=== PATIENT | male | born 1985 | race Caucasian/White ===

== ENCOUNTER → 2022-04-16 | Outpatient (CLI) | payer OTHER, SELFPAY | END | disposition home or self-care (01) | LOC: RAD 17:47 | PROVIDERS: PCP Nurse Practitioner Family; Referring Provider Nurse Practitioner Family; Visit Provider Nurse Practitioner Family | DX: M79.672 Pain in left foot (principal) ==

== ENCOUNTER 2022-08-29 07:56 | Day surgery (SDC) | payer MEDICARE, MEDICAID, SELFPAY ==
[2022-08-29] VITALS (7 sets, daily range): BP systolic 103–124; BP diastolic 63–79; PULSE 65–90; RESP 16–18; TEMP 36.3–36.7; O2SAT 95–99; BMI 41.4
[2022-08-29] MEDS: Lactated Ringers 1,000 ML 15 ML IV (08:23)
--- NOTE | 2022-08-29 08:42 | PCM.HP.BLA ---
History and Physical Date of Admission: 08/29/22 Intake Vital Signs ? 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 Smoking Status:? Former smoker alcohol intake:? never substance use type:? does not use HPI HPI HPI: Patient is a 37-year-old male here with epigastric pain.? He was started on a PPI and was doing well.? When coming off PPI he started have gastritis symptoms again.? He is back to normal while on a PPI again. ROS General General: No weight change, appetite, fatigue, colon cancer, breast cancer or weakness HEENT HEENT: Yes eye injury; No difficulty swallowing, eye surgery, swollen glands or hoarseness Endo Endocrine: No thyroid disease, diabetes mellitus, thyroid cancer, Hair loss, heat intolerance or cold intolerance Skin Skin: No rash or changing moles Musc Musculoskeletal: No back problems, arthritis, rheumatoid arthritis, gout or joint pain Cardio Cardiovascular: No murmur, pacemaker, heart disease, atrial fibrillation, high blood pressure, heart attack, heart stent, palpitations, shortness of breat with exertion or chest pain Psych Psychiatric: Yes depression and anxiety; No hearing voices Resp Respiratory: No shortness of breath, No sleep apnea, No cough, No COPD, No asthma, No emphysema and No wheezing Gastro Gastrointestinal: Yes abdominal pain, No nausea or vomiting, No diarrhea, No constipation, No blood in stool, No acid reflux, No hemorrhoids, No ulcers, No gallbladder problem and No black,tarry stools David Hematologic: No blood thinners, No blood disorders, No bleeding, No anemia and No blood clots Neuro Neurologic: No system reviewed and no additional complaints, except as documented, No as per HPI, No abnormal gait, No abnormal hearing, No abnormal movements, No abnormal speech, No behavioral changes, No burning sensations, No confusion, No convulsions, No disequilibrium, No dizziness, No localized weakness, No frequent falls, No headache(s), No lack of coordination, No loss of vision, No memory loss, No numbness, No other visual disturbances, No radicular pain, No restless legs, No sensory deficit, No syncope, No tingling, No tremor(s), No weakness and No other Exam Const General: cooperative Orientation: alert and oriented x3 HENMT Head: normal to inspection Neck Neck: normal visual inspection and full ROM Chest Chest palpation & inspection: normal inspection of the chest Resp Effort & Inspection: normal respiratory effort Auscultation: clear to auscultation bilaterally Cardio Rate: regular rate Rhythm: regular rhythm GI Inspection: non-distended Palpation: soft and nontender Skin General: no rashes or lesions noted Neuro General: patient alert and patient oriented x3 Extrem General: full ROM Psych Appearance: grossly normal Mental Status: mental status grossly normal Assessment and Plan Assessment and Plan (1) Epigastric pain: ?Status:?Acute ?Plan: The patient says his epigastric pain comes back as soon as he stops his PPI.? I will perform an EGD to take a look for ulceration or gastritis and I will do biopsies to check for H. pylori. I explained endoscopy in detail to the patient.? I explained the risks including but not limited to stroke or heart attack with anesthesia, perforation of the GI tract, bleeding, infection.? I explained that any of these could necessitate further emergency surgery.? The patient understands and all questions were answered sufficiently.? The patient wishes to proceed with procedure. Armen Gloria MD Pager: [facility] [address] [place] [address] [address] [place] [address] Office: I have examined the patient and the H&P has been reviewed. There are no clinical changes since date of exam.
--- NOTE | 2022-08-29 09:00 | IMM_PTH ---
PATIENT: WILBER VO LOC: EN U#:[id number] AGE/SX: 37/M ROOM: RE08/29/[address]: Dr. Armen Gloria MD : 1985 BED: DIS: 08/29/2022 SPEC #: [id number] RECD: 09/01/22 08:14 STATUS: BRANDI MARIA ALEJANDRA #: [id number] BONNIE: 08/29/22 09:[address]: Armen Gloria DEPT: IMMUNOHISTOCHEMISTRY RECD BY: Briana Liu ENTERED: 09/01/22 08:15 SP TYPE: IMMUNO OTHR DR: Marcia Rivera, ELECTRIC CELL TENDER-[facility] Tissues: Stomach, NOS Procedures: H Pylori (initial) PHYSICIAN & INSTITUTION [place] [address] SPECIMEN INFORMATION: Tissue Source: Antrum Clinical Info: Epigastric pain Specimen Number: [id number] CPT code: 63855 METHODOLOGY: Deparaffinized sections of prefer/formalin-fixed tissue or PAP/DQ stained slides are incubated with monoclonal/polyclonal antibodies/oligonucleotide probes. Localization is made via biotin free immunoperoxidase method. Appropriate controls are performed and reacted as expected. Results on target cell population are indicated in the following table: RESULTS: ANTIBODY / CLONE RESULT H Pylori (polyclonal) negative These tests were developed and their performance characteristics determined by [facility]. They may not have been cleared or approved by the U.S. Food and Drug Administration. The FDA has determined that such clearance or approval is not necessary. The above immunohistochemical/dualISH markers are ordered and reviewed by the Pathologist. INTERPRETATION: Antrum, biopsy: Negative for Helicobacter pylori organisms. AM:rosendo 09/02/2022
--- NOTE | 2022-08-29 09:00 | EGD_PTH ---
PATIENT: WILBER VO LOC: EN U#:[id number] AGE/SX: 37/M ROOM: RE08/29/[address]: Dr. Armen Gloria MD : 1985 BED: DIS: 08/29/2022 SPEC #: [id number] RECD: 08/29/22 12:32 STATUS: BRANDI MARIA ALEJANDRA #: [id number] BONNIE: 08/29/22 09:[address]: Armen Gloria DEPT: SURGICAL PATHOLOGY RECD BY: Veronica Luna ENTERED: 09/01/22 07:21 SP TYPE: EGD BIOPSY OT DR: LUIZ [facility] Tissues: Gastric mucous membrane Procedures: Surgery Specimen Level IV HEADER OPERATION: EGD ([facility] [place] with biopsies PRE-OP DIAGNOSIS: Epigastric pain TISSUE SUBMITTED: Antrum biopsy for H. pylori and path MICROSCOPIC DIAGNOSIS Gastric antrum, biopsy: Chronic gastritis. See comment. AM:rg 09/02/2022 COMMENT The results of immunohistochemistry for Helicobacter pylori will be reported separately ([id number]). MICROSCOPIC DESCRIPTION Slides are reviewed. GROSS DESCRIPTION Received in fixative is one container labeled with the patient's name and designated antrum biopsy. The specimen consists of multiple irregular fragments of light strickland soft tissue that in aggregate measure 1.0 x 0.3 x 0.1 cm. The specimen is totally submitted in one cassette. / AM:rosendo 09/01/2022 TC:3 CPT: 50319
--- NOTE | 2022-08-29 09:05 | OP.EGD_ITS ---
Patient Name: Cameron Henry Procedure Date: 08/29/2022 8:50 AM Date of : 1985 Age: 37 Procedure: Upper GI endoscopy Indications: Esophageal reflux Providers: Armen Gloria MD Medicines: Monitored Anesthesia Care Patient Profile: This is a 37 year old male. Refer to note in patient chart for documentation of history and physical. Complications: No immediate complications. Estimated blood loss: Minimal. Procedure: Pre-Anesthesia Assessment: - Prior to the procedure, a History and Physical was performed, and patient medications and allergies were reviewed. The patient's tolerance of previous anesthesia was also reviewed. The risks and benefits of the procedure and the sedation options and risks were discussed with the patient. All questions were answered, and informed consent was obtained. Prior Anticoagulants: The patient has taken no previous anticoagulant or antiplatelet agents. After reviewing the risks and benefits, the patient was deemed in satisfactory condition to undergo the procedure. After obtaining informed consent, the endoscope was passed under direct vision. Throughout the procedure, the patient's blood pressure, pulse, and oxygen saturations were monitored continuously. The gastroscope was introduced through the mouth, and advanced to the second part of duodenum. The upper GI endoscopy was accomplished without difficulty. The patient tolerated the procedure well. Scope In: 8:58:53 AM Scope Out: 9:02:15 AM Total Procedure Duration Time 0 hours 3 minutes 22 seconds Findings: The esophagus was normal. The examined duodenum was normal. There was evidence of bile reflux in the stomach. Biopsies were taken with a cold forceps in the gastric antrum for Helicobacter pylori testing. Impression: - Normal esophagus. - Normal examined duodenum. - Bile refulux in stomach. - Biopsies were taken with a cold forceps for Helicobacter pylori testing. Recommendation: - Discharge patient to home. - Resume previous diet. - Continue present medications. - Await pathology results. Procedure Code(s): --- Professional --- 83225, Esophagogastroduodenoscopy, flexible, transoral; with biopsy, single or multiple Diagnosis Code(s): --- Professional --- K21.9, Gastro-esophageal reflux disease without esophagitis CPT copyright 2017 [employer]. All rights reserved. The codes documented in this report are preliminary and upon general foreman review may be revised to meet current compliance requirements. Armen Gloria MD 08/29/2022 9:05:16 AM This report has been signed electronically. Number of Addenda: 0 Note Initiated On: 08/29/2022 8:50 AM
--- NOTE | 2022-08-29 09:05 | OP.CCLET_ITS ---
08/29/2022 Marcia Rivera NP [address] [id number] Re : Upper GI endoscopy procedure for Cameron Carl Dear Ms. Rivera This procedure was performed on Monday, August 29, 2022. My impressions and recommendations are as follows: Impressions : - Normal esophagus. - Normal examined duodenum. - Bile refulux in stomach. - Biopsies were taken with a cold forceps for Helicobacter pylori testing. Recommendations : - Discharge patient to home. - Resume previous diet. - Continue present medications. - Await pathology results. My findings are described in the full procedure note, which is enclosed. If I can be of further assistance, please feel free to contact me at Doctor phone number(s): , Work: . Sincerely, Armen Gloria MD 08/29/2022 9:05:16 AM This report has been signed electronically.
== END 2022-08-29 10:00 | disposition home or self-care (01) ==
LOC: EN 08:00 → AC 08:01
PROVIDERS: Visit Provider Surgery
PROC: 0DJ08ZZ Inspection of Upper Intestinal Tract, Via Natural or Artificial Opening Endoscopic (ICD-10-PCS; CPT 43235; principal; 2022-08-29 08:55)
DX: K29.50 Unspecified chronic gastritis without bleeding (principal); K21.9 Gastro-esophageal reflux disease without esophagitis; F41.9 Anxiety disorder, unspecified; G47.30 Sleep apnea, unspecified; Z87.891 Personal history of nicotine dependence; Z79.899 Other long term (current) drug therapy
CPT/HCPCS: 43239; 88305; 88342; J7120; J2405

== ENCOUNTER 2023-11-10 08:00 | Outpatient (RCR) | payer MEDICARE, MEDICAID, SELFPAY ==
--- NOTE | 2023-11-10 09:05 | BH.SGPN.GN ---
Behaviors/Verbalizations/Mental Status: [] Eye contact is good. Motor activity is appropriate. Appearance is casual. Speech is Appropriate. Mood is anxious. Affect is congruent. Thoughts are linear and logical. No evidence of psychosis. Reviewed daily check in sheet and no reports of suicidal ideations or intent. Client Response/Progress/Benefit: [] Pt participated when prompted. Attentive. Daily symptom tracker notes 06/15 for anxiety. Today was pt?s first day in IOP and he briefly introduced himself. Reports significant panic attacks which have been worsening for the past 5 years. Due to anxiety and panic attacks he is no longer able to drive or be alone. Reports that he requires a product safety specialist to be near him at all times ?in case I freak out?. Anxiety has resulted in inability to live alone, drive, and attend social functions. He was very active in AA however has not been able to engage due to anxiety. Also reports that he has been calling 911 2x weekly due to anxiety and panic attacks. No progress noted as this was his first day in [facility]. Group provided support and advice for his first day which was beneficial. Will continue in [facility] to prevent decompensation, decrease panic attacks, increase healthy coping, and improve functioning. Narrative Note: []
--- NOTE | 2023-11-10 10:10 | BH.SGPN.GN ---
Behaviors/Verbalizations/Mental Status: []Pt alert and oriented, causally dressed and groomed. Eye contact fair. Motor activity appropriate. Speech within normal limits. Affect congruent, mood anxious. Thoughts linear, logical, no signs of hallucinations or delusions. Client Response/Progress/Benefit: [] Pt was actively engaged, providing input, and taking notes throughout session. Connected with the topic of pitfalls and listened to group discussion on internal and external barriers that prevent from choosing a healthier path to mental wellness. Group worked together to identify examples of personal internal pitfalls. Engaged in activity and worked cooperatively with peers. Shared personal pitfalls to include avoidance, giving up when too hard, isolation, and reacting before thinking. Pt engaged in learning about the difference between external triggers and self-sabotaging behaviors. Seemed to benefit from increased awareness of personal pitfalls. Pt will continue IOP tx to increase healthy coping skills, decrease avoidance, and prevent decompensation.
--- NOTE | 2023-11-10 11:15 | BH.SGPN.GN ---
Behaviors/Verbalizations/Mental Status: []Pt alert and oriented, casually dressed and groomed. Eye contact good. Motor activity appropriate. Speech within normal limits. Affect congruent, mood anxious and depressed. Thoughts linear, logical, no signs of hallucinations or delusions. Client Response/Progress/Benefit: [] Pt receptive of session, engaged throughout AEB actively contributing and listening to discussion, as well as taking notes. Pt participated in the experiential activity and processed with group how their emotions, perspective, and reactions positively and negatively impacted the outcome. Pt identified pitfalls they struggle with and shared wanting to work on pitfall of isolation by reaching out to people or going for a walk. Benefited from identifying personal pitfalls and strategies to overcome these pitfalls. Will continue IOP tx to prevent decompensation, improve daily functioning, and reduce engagement in safety behaviors reinforcing his anxiety. Narrative Note: []
--- NOTE | 2023-11-10 14:05 | BH.MDN ---
Multi-Disciplinary Note Note 60-min Individual: Time Started:: 12:05 Date: 11/10/23 Purpose of session/treatment goals addressed:: Purpose of session was to build rapport, gather background information, and identify treatment goals for IOP. Eye Contact:: Fair Motor Activity:: Restless Appearance:: Neat Speech:: Appropriate Mood:: Anxious Affect:: Congruent Thoughts:: Linear, Logical and No evidence of hallucinations/delusions noted Staff Interventions:: psychoeducation on: (impact of anxiety avoidance), CBT techniques, mindfulness skills, rapport building, strengths perspective, treatment planning and taught coping skills (breathing) Client Response:: Client reported he is seeking treatment because he has panic disorder but he has not been able to manage and it has gotten worse over the last 5 years. Client shared he first had a panic attack about 5 years ago while he was at the gym which was the first panic attack he has ever had. Client stated initially he thought it was a medical reason for his symptoms for about 2 to 3 years but over time started to realize its likely more mental health related. Client reported after his first panic attack at the gym it started to get harder for him to do anything that resulted in his heart rate increasing. Client stated slowly over the years his anxiety and panic disorder gotten worse to the point where he had to move back in with his parents 2 years ago because he cannot be alone out of fear something bad will happen to him. Client reported he has a difficult time driving beyond short distance while he is in town. Client stated his parents have rotated who is home throughout the week so that he is essentially never alone. Client reported he is frustrated because he owns his own house but due to his anxiety he cannot live there. Client stated he knows it is a lot put on his parents but for some reason they are his safe people. Client reported he is around his parents he typically is fine and does not feel any in the panic like symptoms. Client stated he can go into stores by himself and essentially his world has gotten smaller and smaller. Client reported he has been to the ER over 30 times in the last 1 to 2 years because he was having a panic attack and that he was dying. Client states he has had to fur puller while driving called paramedics because of the panic attack. Client stated he is in current counseling and has done some EMDR but has not found much success thus far with reducing his avoidance of anxiety provoking situations. Client stated he does have a history from age 11 to 26 years old of polysubstance abuse. Client stated he has been through significant traumas throughout his addiction years but has been sober for 11 years. 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 Client stated not being able to get out of the house due to his anxiety has played a role in feeling more down and depressed and experiences anhedonia. Client reported while he is in IOP he would like to learn how to better manage his anxiety so that he can independently function. Client responded well to psychoeducation about anxiety avoidance, will impact the safety behaviors, and the body's response to fear. Therapist talked client belly breathing techniques and grounding to tools. Client agreeable to practice the belly skills and grounding skills to start helping with managing his anxious symptoms in the moment. Risks/Concerns:: Denies suicide ideation, plan, intention. Future oriented. Progress Toward Goals/Plan:: No progress observed given today is his first day in IOP. Client's panic disorder has significantly impact his ability to function independently day to day. Over the last 5 years client has slowly lost ability to go to stores, drive, and live alone due to his anxiety. Client expresses desire to learn healthy coping skills and ways to manage his anxiety so that he can start to get out of his house again. Client to continue IOP to increase healthy coping skills, decrease anxious avoidance, and prevent decompensation. Time Stopped:: 13:00
--- NOTE | 2023-11-10 14:49 | BH.MTP ---
Master Treatment Plan Patient Information Program Physician:: Dr. Castellon Primary Therapist:: Fany Walden, [facility] Psychiatric Diagnoses Psychiatric Diagnoses:: 1. Major depressive disorder, recurrent, moderate 2. Panic disorder 3. History of polysubstance abuse disorder in full remission for 11 years Diagnosis Code(s):: F33.1 Estimated LOS Estimated LOS (in weeks):: 6 Problem/Goal #1 Problem/Goal #1 Stated Goal:: Client will reduce depression, feelings of hopelessness, and suicidal ideation due to Major Depressive Disorder through Intensive Outpatient Program.? Description of Barriers: Potential barriers include: anxious thoughts, negative predictions about therapy not working, and difficulty sitting with uncomfortable emotions. Functional Impact: The patient is a 38-year-old single, male with a history of panic attacks, depression, alcohol and polysubstance abuse disorder (sober from all for 11 years) who is who was referred by his outpatient psychiatric provider to the [facility] for worsening symptoms of anxiety, panic attacks and depression. The patient owns his own house and used to live there but has lived with his parents now for the past 2 years due to his worsening panic attacks. The patient had his first panic attack 5 years ago in 2019 which was triggered by exercising. He continued to have panic attacks and they gradually worsened so that in the past 2 years they have become quite severe and he is unable to drive or be alone. One of his parents is almost always with him and his panic attacks also are triggered by physical exertion so he is unable to exercise anymore and unable to like mow the lawn or other activity. He has been on disability since age 23 for polysubstance abuse and psych issues. He is having panic attacks throughout the day sometimes while sleeping and the symptoms include increased heart rate, increased blood pressure which last during the panic attack, sweating, feeling of impending doom, increased heart rate, and other. He is a worrier by nature and ruminates negatively. He has been isolating and avoids stressors. He is hypersensitive to light and sound. He has called 911 several times a month for severe panic attacks. He has 30 emergency room visits for anxiety in the past year. He endorses hopelessness off-and-on, sadness, but denies worthlessness or guilt. He does not enjoy anything like he used to because he said he is unable to be active because it triggers a panic attack. Objectives Objective #1: Stated Objective: Client will learn and utilize 2-3 healthy coping strategies to manage depressive symptoms. Interventions: Therapist will utilize CBT techniques to assist client with understanding the connection between thoughts, feelings and behaviors. Education will be provided on behavioral activation. Therapist will assist client in learning internal coping strategies to manage depressive symptoms, along with helping client identify triggers. Discharge Criteria: Client will have achieved this goal when can verbalize and has practiced at least 2 healthy coping strategies that successfully manage depressive symptoms. Target Date: 12/22/23 Review Date: 12/08/23 Objective #2: Stated Objective: Client will identify and replace 2-3 negative thinking patterns that reinforce depressive symptoms. Interventions: Therapist will assist client in developing an awareness of the cognitive messages that reinforce depressive thinking. Therapist will also assist client in challenging negative thinking patterns. Discharge Criteria: Client will have achieved this goal when can identify at least 2 negative thinking patterns, replace negative thinking with more positive, affirmative messages. Target Date: 12/22/23 Review Date: 12/08/23 Problem/Goal #2 Problem/Goal #2 Stated Goal:: Client will reduce overall frequency, intensity, and duration of the anxiety so that daily functioning is not impaired. Description of Barriers: Potential barriers include: anxious thoughts, negative predictions about therapy not working, and difficulty sitting with uncomfortable emotions. Functional Impact: The patient is a 38-year-old single, male with a history of panic attacks, depression, alcohol and polysubstance abuse disorder (sober from all for 11 years) who is who was referred by his outpatient psychiatric provider to the [facility] for worsening symptoms of anxiety, panic attacks and depression. The patient owns his own house and used to live there but has lived with his parents now for the past 2 years due to his worsening panic attacks. The patient had his first panic attack 5 years ago in 2019 which was triggered by exercising. He continued to have panic attacks and they gradually worsened so that in the past 2 years they have become quite severe and he is unable to drive or be alone. One of his parents is almost always with him and his panic attacks also are triggered by physical exertion so he is unable to exercise anymore and unable to like mow the lawn or other activity. He has been on disability since age 23 for polysubstance abuse and psych issues. He is having panic attacks throughout the day sometimes while sleeping and the symptoms include increased heart rate, increased blood pressure which last during the panic attack, sweating, feeling of impending doom, increased heart rate, and other. He is a worrier by nature and ruminates negatively. He has been isolating and avoids stressors. He is hypersensitive to light and sound. He has called 911 several times a month for severe panic attacks. He has 30 emergency room visits for anxiety in the past year. He endorses hopelessness off-and-on, sadness, but denies worthlessness or guilt. He does not enjoy anything like he used to because he said he is unable to be active because it triggers a panic attack. Objectives Objective #1: Stated Objective: Client will learn and implement 2-3 calming skills to reduce overall anxiety and manage anxiety symptoms. Interventions: Therapist and group sessions will help client identify physiological warning signs of anxiety, increase awareness of thoughts that increase anxiety, and identify behaviors that reinforce anxious symptoms. Group and individual counseling will teach client calming skills to help manage anxious symptoms. Discharge Criteria: Client will have achieved this goal when can verbalize at least 2 calming skills and reports skills successfully help reduce anxious symptoms. Target Date: 12/22/23 Review Date: 12/08/23 Objective #2: Stated Objective: Client will participate in at least one gradual exposure to feared or avoided situations. Interventions: Therapist will assist client in construction of a hierarchy of anxiety-producing situations associated with panic disorder in which a symptom attach and its negative consequences are feared. Homework will be assigned for client to gradually work through fear ladder. Discharge Criteria: This goal will have been met when client reports decrease in avoidance of anxiety provoking situations by repeatedly exposing himself to his feared situations. Target Date: 12/22/23 Review Date: 12/08/23
--- NOTE | 2023-11-11 10:10 | BH.SGPN.GN ---
Behaviors/Verbalizations/Mental Status: [] Eye contact is fair. Motor activity is appropriate. Appearance is casual. Speech is Appropriate. Mood is anxious. Affect is congruent. Thoughts are linear and logical. No evidence of psychosis. Client Response/Progress/Benefit: [] Pt receptive to session AEB contributing to small group discussion, as well as listening attentively to others, and taking notes. Worked with group to brainstorm the positive and negative aspects of stress on physical and mental health as well as the impact of distress on performance, relationships, and mental health. Pt shared his top stressors to be: anxiety, difficulty functioning independently, and driving. Shared when feeling overwhelmed with stress he tends to shut down and isolate. Benefited from increased awareness of positive and negative stress as well as how stress impact individuals. Will continue in IOP to decrease anxious avoidance, increase healthy coping skills, and prevent decompensation.
--- NOTE | 2023-11-11 11:10 | BH.SGPN.GN ---
Behaviors/Verbalizations/Mental Status: []Pt alert and oriented, casually dressed and groomed. Eye contact good. Motor activity appropriate. Speech within normal limits. Affect congruent, mood anxious. Thoughts linear, logical, no signs of hallucinations or delusions. Client Response/Progress/Benefit: [] Pt was an attentive and active participant in group discussions and experiential activity, doing well to regulate their emotions throughout the activity and work with peers. Attentive during psychoeducation on the 4 A's (Avoid, adapt, alter, accept) of coping with stress. Shared that they would benefit most from altering his responses when addressing toxic or unhelpful work related brunilda calls. Was able to identify the connection between the experiential activity and utilization of stress management skills. Benefited from increased awareness of stress management strategies. Pt will continue IOP tx to prevent decompensation, improve daily functioning, and increase mindfulness approaches to anxiety. Narrative Note: []
--- NOTE | 2023-11-11 11:20 | BH.NA ---
Physical Data Vital Signs Pulse Rate: 69 Blood Pressure: 137/88 Height/Weight Height: 1.83 m Weight:: 147.418 kg Weight in Pounds: 325.0 lbs Current Medication Compliance Medication Compliance Do you take your medication as prescribed?: Yes Nutritional History Appetite Nutritional Instructions: Describe your appetite:: Good Additional nutritional information:: Client denies recent change in appetite or weight. Functional Assessment Sleep Pattern Describe any problems with sleeping: Client states he sleeps about 6 hours per night. Medical Problems/History Respiratory Conditions Respiratory: Asthma (mild environmental) and Other (See comments) (SERGIO- uses cpap) Gastrointestinal Conditions Gastrointestinal: Other (See comments) (GERD) Pain Assessment Do you have acute or chronic pain?: No Surgical History Surgical History Have you had any surgeries? If so, list type and date:: Yes (mathieu, appy, nasal septoplasty, eye surgery) Substance Abuse Substance Abuse Please describe substance abuse in the last 30 days:: Client states he has been sober from alcohol for almost 12 years. Client states he was a former cigarette smoker, but quit about 14 years ago. Client states he was a substance user from age [age], and had been to rehab for use of cocaine and also for opioids. Client states he has been clean from alcohol and substances for almost 12 years. Client denies caffeine use. Mental Status Summary Mental Status Significant Findings/Observations on Appearance and Mood:: Client is alert and oriented x 4. Client is casually groomed. Client is cooperative with assessment. Client makes good eye contact. Client's voice has normal rate and volume. Client has somewhat restricted affect. Client makes logical associations and has normal processing. Client denies delusions/hallucinations. Client denies SI. Suicide Assessment Suicidal Ideation Are you currently or have you been suicidal in the past?: Yes Suicidal Intentional Rating Scale (SIRS): Suicidal thoughts (past) (denies current) Physician Notification Past Psychiatric History MH Treatment Hx Past Psychiatric Medications:: had been on antipsychotics years ago (at the same time he was abusing drugs), Lexapro, Buspar, Clonidine Age of first mental health symptoms: Client states he was first on medications for mental health around age 17 and was on them consistently until age 30, then was off meds until the last couple of years. Describe (age, circumstance, etc) any past hospitalizations: x 2 about 20 years ago Current providers for mental health treatment (counselor, psychiatrist, family service caseworker, etc.): [facility] Fall Risk Assessment Age Age: Less than 60 Mental Status Mental Status: Willing & able to ask for assistance when needed Physical Status Physical Status: No problems Impairments Impairments: None Elimination Elimination: Continent AND independent Gait or Balance Gait or Balance: Walks independently Hx of Falls History of falls in the past 6 months: No known history Medications/Substances Psychotropics:: Antidepressants Others:: Antihypertensives Medications/substances used within the past 24 hours or ordered to administer: 1-2 of the medications/substances listed above Total Score Total Points:: 1 RN Summary of Impressions Impressions Recommendations Impressions: Psychiatric Issues: panic disorder, major depressive disorder Level of Care How do the client's current symptoms and functional deficits support need for this level of care?: Client was referred to IOP after multiple ER visits for anxiety. Client has been having severe anxiety for about the past 5 years since having a panic attack while working out in a [employer]. Client states his anxiety has continued to worsen, and client states he had been having panic attacks daily for several months. Client states at times with his panic attacks, he would have to get out of his car and lay down on the ground to get himself to calm down. Client states he even had a lot of anxiety about getting a panic attack when he was out doing something. Client states for the last several months, one of his parents is with him all the time. Client states he does not drive currently due to panic attacks and anxiety. Client reports calling 911 several times a week at times due to feeling like I'm dying. Client states he hasn't had a significant panic attack in about a month or so. Client denies SI. IOP will promote gains and prevent further decompensation while providing social support and skills training.
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
[2023-11-11 12:43] VITALS: BP 137/88; PULSE 69
--- NOTE | 2023-11-11 12:49 | BH.DR.ITP ---
Initial Treatment Plan Patient Information Visit Information: ADMISSION DATE: EXPECTED LOS: 4-6 weeks Problems/Symptoms Problem #1:: Depression Symptom:: Sadness, hopelessness, anhedonia, low energy, decreased concentration Problem #2:: Anxiety Symptom:: Panic attacks, worry, rumination, avoidance
--- NOTE | 2023-11-17 09:05 | BH.SGPN.GN ---
Behaviors/Verbalizations/Mental Status: [] Eye contact is poor.. Motor activity is restless. Appearance is casual. Speech is Appropriate. Mood is anxious. Affect is congruent. Thoughts are linear and logical. No evidence of psychosis. Reviewed daily check in sheet and no reports of suicidal ideations or intent. Client Response/Progress/Benefit: [] Pt participated when prompted. Attentive, however restless throughout the group. Daily symptom tracker notes 1/5 for depression, 3/5 for anxiety, and 2/5 for agitation. Identifed mental health win as walking by myself to the post office. 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 Despite this he immediately discounted the positives and compared himself to how he was functioning 4 years ago. Group challenged his thinking and pointed out cognitive distortions which was beneficial. Often feeling hopeless that he was never return to his baseline, be able to drive himself, or function independently. Will continue in IOP to prevent decompensation, increase healthy coping, and improve functioning. Narrative Note: []
--- NOTE | 2023-11-17 10:20 | BH.SGPN.GN ---
Behaviors/Verbalizations/Mental Status: []Pt alert and oriented, neatly dressed and groomed. Eye contact fair. Motor activity appropriate. Speech within normal limits. Affect congruent, mood anxious. Thoughts linear, logical, no signs of hallucinations or delusions. Client Response/Progress/Benefit: [] Pt responded well to session, contributing to discussion, and engaged during the activity. Group identified the benefits of change which included: increased confidence, improving mental health, and making progress. Worked with the group to identify barriers to change, which included: uncomfortable emotions such as anxiety and fear, lack of energy, worried about what others will think, and fear of the unknown. Pt participated along with group in activity where they identified and discussed the emotions related to change. Pt connected with peers that one can have many conflicting emotions when faced with change. Benefited from increased awareness and understanding of emotions, benefits, and barriers related to change. Will continue IOP tx to decrease anxious avoidance, start working on anxiety exposure goals, and prevent decompensation.
--- NOTE | 2023-11-17 11:15 | BH.SGPN.GN ---
Behaviors/Verbalizations/Mental Status: [] Client alert and oriented, casually dressed and groomed. Eye contact good. Motor activity appropriate. Speech within normal limits. Affect congruent, mood anxious. Thoughts linear, logical, no signs of hallucinations or delusions. Client Response/Progress/Benefit: [] Client responded well to session, attentive throughout. Did well to actively listen and contributed when prompted as group worked to process activity. Pt worked with group to relate the strategies used to overcome barriers in the activity to managing change in own life. Client identified a change they would like to make working to drive longer distances away from his house. Client identified currently being in preparation stage for this particular change. Client said continuing to work on small exposure goals can help get to next stage. Appeared to benefit from identifying a change they want and how to progress. Client will continue IOP tx to prevent decompensation, gain healthy coping skills and reduce safety behaviors, and improve daily functioning. Narrative Note: []
--- NOTE | 2023-11-19 09:00 | BH.SGPN.GN ---
Behaviors/Verbalizations/Mental Status: []Pt alert and oriented, casually dressed and groomed. Eye contact good. Motor activity appropriate. Speech within normal limits. Affect flat, mood depressed and tired. Thoughts linear, logical, no signs of hallucinations or delusions. Reviewed pt?s symptom tracker, no risk for suicidal ideation, plan, or intent 11/19/23 Client Response/Progress/Benefit: []Pt responded well to session, attentive and engaged. Pt reports feeling tired this morning. Pt kept his check-in brief as pt is highly anxious. Pt did give himself credit for coming to IOP consistently as pt's anxiety has caused significant avoidance. Pt shared he is also anxious about paying his bills, but pt feels he can problem-solve this. Pt appeared to benefit from positive feedback that reinforced pt's healthy decisions. Pt will continue IOP tx to prevent decompensation, reduce isolation, and improve daily functioning. Narrative Note: []
--- NOTE | 2023-11-19 10:10 | BH.SGPN.GN ---
Behaviors/Verbalizations/Mental Status: [] Eye contact is good. Motor activity is appropriate. Appearance is casual. Speech is Appropriate. Mood is anxious. Affect is congruent. Thoughts are linear and logical. No evidence of psychosis. Client Response/Progress/Benefit: [] Pt receptive of session, actively engaged throughout AEB taking notes, providing input, and contributing in small group discussion. Appeared to connect with group topic of automatic thoughts and cognitive distortions, as well as the impact of thought patterns on mental health, coping behaviors, and relationships. This particular group is very heavy on psychoeducation and pt appeared to connect with distortions and how they can impact functioning. Identified struggling with catastrophizing and predicting the future distortions. Pt appeared to benefit from gaining insight on distorted thinking patterns and how this impacts overall mental health. Will continue IOP to stabilize mood, improve ability to function, and prevent decompensation. Narrative Note: []
--- NOTE | 2023-11-19 11:20 | BH.SGPN.GN ---
Behaviors/Verbalizations/Mental Status: []Pt alert and oriented, casually dressed and groomed. Eye contact fair. Motor activity appropriate. Speech within normal limits. Affect congruent, mood anxious. Thoughts linear, logical, no signs of hallucinations or delusions Client Response/Progress/Benefit: [] Pt was an active participant during group discussion. Pt was placed in a smaller group and participated in combatting example distortions with peers. Pt was engaged in the smaller group, participated in group interactions to brainstorm answers, and appeared to be comprehending cognitive distortions. Pt could connect with catastrophizing as a distortion that negatively impacts him. Benefited from gaining further insight and awareness of cognitive distortions as well as practicing ways to reframe and challenge thoughts. Will continue in IOP tx to continue working on his fear ladder, increase consistent use of calming skills, and prevent decompensation.
--- NOTE | 2023-11-19 15:05 | BH.MDN ---
Multi-Disciplinary Note Note 45-min Individual: Time Started:: 12:05 Date: 11/19/23 Purpose of session/treatment goals addressed:: Purpose of session was to address goals 1 and 2 from [facility]. Eye Contact:: Fair Motor Activity:: Restless Appearance:: Neat Speech:: Appropriate Mood:: Anxious Affect:: Congruent Thoughts:: Linear, Logical and No evidence of hallucinations/delusions noted Staff Interventions:: thought challenging, CBT techniques, mindfulness skills, rapport building, strengths perspective, goal setting and other (Created fear ladder hierarchy) Client Response:: Client expressed feeling anxious about starting to create a fear ladder because he is nervous about having to sit with uncomfortable feelings. Client reported however he recognizes if he does not change how he is managing his anxiety he will continue to stay stuck in his house with limited ability to be without a support person. Client stated he started to realize that he also cannot just rely on a panic anxiety medication because once those medications run out he does not know how to manage his feelings. Client worked with therapist to identify situations that cause anxiety when it comes to driving and going into stores. Client identified driving to the store with a support person is still anxiety producing but would be something that is more manageable. with Client able to come up 8 gradual exposure steps for his fear ladder. Client stated eventually wants to create a fear ladder for physical sensations because fear of having panic attack is quickly triggered when he experiences dizziness or increased heart rate. Client agreeable to start working on fear hierarchy with encouragement to repeat the same step over and over again until his anxiety is at a more manageable level. Reminded client to utilize belly breathing and grounding techniques to help with in the moment anxiety. Risks/Concerns:: Denies suicidal ideation, plan, intention. Future oriented. Progress Toward Goals/Plan:: Progress noted as evidenced by client reporting willingness to start working on a fear hierarchy to help decrease avoidance and improve daily functioning. Client expresses anxiety about having to sit with the uncomfortable but recognizes if he continues to avoid he will be able to get back to functioning in every day life. Client is to continue IOP to work through fear hierarchy, continue utilizing healthy calming skills, and prevent decompensation. Time Stopped:: 12:50
--- NOTE | 2023-11-24 09:05 | BH.SGPN.GN ---
Behaviors/Verbalizations/Mental Status: [] Eye contact is fair. Motor activity is appropriate. Appearance is casual. Speech is Appropriate. Mood is anxious. Affect is congruent. Thoughts are linear and logical. No evidence of psychosis. Reviewed daily check in sheet and no reports of suicidal ideations or intent. Client Response/Progress/Benefit: [] Pt participated at times during group discussion on Cognitive Behavioral Therapy and combating negative thoughts. Attentive. Pt shared recent mental health wins which included going to a medical appointment and shopping alone. Due to significant anxiety, fear, and panic attacks pt has relied on a process safety specialist to be with him pretty much 01/12. I wouldn't have been able to do that a month ago. He remains frustrated with his anxiety and panic attacks and has a hard time believing that he will ever be able to drive or live alone again, however does feel hopeful today. Increased awareness and effort on small exposure goals has been beneficial. Benefited from group support, encouragement, and feedback. Will continue in IOP to prevent decompensation, decrease panic attacks, increase healthy coping, and improve functioning. Narrative Note: []
--- NOTE | 2023-11-24 10:05 | BH.SGPN.GN ---
Behaviors/Verbalizations/Mental Status: []Patient was alert and oriented, casually dressed and groomed. Eye contact was fair, motor activity normal, speech within normal limits. Affect constricted, mood anxious. Thoughts linear, logical, no signs of hallucinations or delusion Client Response/Progress/Benefit: []Pt participated in the group discussions AEB providing input and taking notes. Attentive during psychoeducation Goal Setting. Participated during the discussion on common barriers and pt identified some personal barriers as history of failing, apathy, and lack of motivation. Group also identified benefits sense of purpose, improved self-confidence, more motivation for other goals, and improved mental health. Benefited from increased awareness of mental health benefits of goals as well as psychoeducation on SMART goal criteria. Will continue in IOP to reduce avoidance, improve daily functioning, and increase distress tolerance skills. Narrative Note: []
--- NOTE | 2023-11-24 11:05 | BH.SGPN.GN ---
Behaviors/Verbalizations/Mental Status: []Pt alert and oriented, casually dressed and groomed. Eye contact good. Motor activity appropriate. Speech within normal limits. Affect congruent, mood anxious. Thoughts linear, logical, no signs of hallucinations or delusions. Client Response/Progress/Benefit: [] Pt was semi-engaged during discussion AEB providing input when prompted, taking notes throughout, and willing to complete the worksheet challenging them to develop a personal SMART goal. Pt chose the goal of driving alone further than he has currently been at least 3x this week. Pt stated this will help improve his ability to manage sx of anxiety and reduce use of safety behaviors. Pt identified doubt as a potential barrier. Identified solution as positive self-talk and opposite action. Benefited from this group by developing a short-term SMART goal related to mental health. Will continue IOP tx to improve daily functioning, increase healthy coping skills to reduce safety behaviors, and prevent decompensation. Narrative Note: []
--- NOTE | 2023-11-24 15:06 | BH.MDN ---
Multi-Disciplinary Note Note 30-min Individual: Time Started:: 12:10 Date: 11/24/23 Purpose of session/treatment goals addressed:: Purpose of session was to address goals 1 and 2 from [facility]. Eye Contact:: Fair Motor Activity:: Restless Appearance:: Neat Speech:: Appropriate Mood:: Euthymic Affect:: Congruent Thoughts:: Linear, Logical and No evidence of hallucinations/delusions noted Staff Interventions:: thought challenging, CBT techniques, mindfulness skills, strengths perspective, goal setting, taught coping skills and other (exposure activity for physical sensations) Client Response:: Client stated he did follow through with one of the steps from the fear ladder of going into [place] alone while he has a support person in the parking lot. Client reported his anxiety was less intense than he originally had expected it to be. Client reported he also was able to drive independently to pickle maker his medication which was another goal from his fear ladder. Client open to doing a exposure step while in therapy today by taking a walk around the building which would likely result in slight increase in heart rate. In the first walk around the building client and therapist walked together. Client stated overall the first walk went well but did find a little challenging because when he is talking and walking his breathing can get more labored. Client reported although he felt slightly anxious it was manageable and not too bad. Client then took a walk around the building on his own without therapist following him. Client stated he was again slightly anxious because he could feel his breathing being a little harder and his heart beating a little faster. Client reported despite noticing the physiological changes he was able to managing his anxiety and did not think it was that bad. Client agreed he could start working on walking independently because there is a [place] that he typically takes with his mom at his house. Client stated he could walk a certain distance that he feels is slightly uncomfortable but not panic anxiety and then slowly starting to increase his distance while walking alone. Risks/Concerns:: Denies suicidal ideation, plan, or intention. Future oriented. Progress Toward Goals/Plan:: Progress noted with client being able to independently go into a store that usually causes significant anxiety for client with ability to manage his anxiety appropriately. Additional progress noted with client being able to increase his heart rate by going on a walk during session today with ability to manage anxious thoughts. Plan is for client to continue IOP to continue working for her latter and slowly exposing himself to things that he usually avoids. Time Stopped:: 12:40
--- NOTE | 2023-11-26 09:00 | BH.SGPN.GN ---
Behaviors/Verbalizations/Mental Status: [] Eye contact is poor (Scans).. Motor activity is appropriate. Appearance is casual. Speech is Appropriate. Mood is anxious. Affect is congruent. Thoughts are linear and logical. No evidence of psychosis. Reviewed daily check in sheet and no reports of suicidal ideations or intent. Client Response/Progress/Benefit: [] Pt participated at times during the group discussion. Attentive. Pt continue to work on his exposure and fear ladder goals which has led to progress. Pt continues to walk to the post office w/o product safety engineer in case I freak out. Since starting IOP pt's father has waited in the car while pt attended [facility] (3 hours) as a safety net incase he had a panic attacks. Today pt asked his father to leave him her alone hasn't been bad so far. Also no reports of calling 911 or presenting to the ER since starting IOP. Progress noted. Will continue in IOP to prevent decompensation, stabilize anxiety, decrease panic attacks, and improve functioning. Narrative Note: []
--- NOTE | 2023-11-26 10:10 | BH.SGPN.GN ---
Behaviors/Verbalizations/Mental Status: []Pt alert and oriented, neatly dressed and groomed. Eye contact good. Motor activity appropriate. Speech within normal limits. Affect congruent, mood euthymic and anxious. Thoughts linear, logical, no signs of hallucinations or delusions Client Response/Progress/Benefit: [] Pt was an active participate AEB listening attentively to others, participating in group discussions, and taking notes throughout. Participated as the group identified ways we can hurt others or sabotage self by not regulating our emotions. Participated with peers to identified ways emotions impact communication which pt shared he shuts down when he feels anxious. Participated during group activity. Pt benefited from session by gaining an increased understanding on the importance of managing emotions to improve daily functioning. Will continue IOP tx to prevent decompensation, reduce avoidance, and improve daily functioning. Narrative Note: []
--- NOTE | 2023-11-26 11:10 | BH.SGPN.GN ---
Behaviors/Verbalizations/Mental Status: []Pt alert and oriented, casually dressed and fairly groomed. Eye contact good. Motor activity appropriate. Speech within normal limits. Affect congruent, mood euthymic. Thoughts linear, logical, no signs of hallucinations or delusions. Client Response/Progress/Benefit: [] Pt engaged in session AEB Pt listening attentively to peers and providing input. Attentive during psychoeducation on 4 zones of regulation. Pt able to identify feelings and behaviors for each zone. Pt identified coping skills one can use to support self in each zone. Identified being in the green zone today wants to stay in this zone, so pt wants to ?keep working on my exposure goals?. ?Benefited from increased education on zones of regulation or stages of alertness for emotions and healthy coping skills to use for each zone. Will continue IOP tx to prevent decompensation, improve daily functioning, and reduce avoidance. ?? Narrative Note: []
--- NOTE | 2023-12-01 09:00 | BH.SGPN.GN ---
Behaviors/Verbalizations/Mental Status: [] Eye contact is poor. Motor activity is restless. Appearance is casual. Speech is Appropriate. Mood is anxious. Affect is congruent. Thoughts are linear and logical. No evidence of psychosis. Reviewed daily check in sheet and no reports of suicidal ideations or intent. Client Response/Progress/Benefit: [] Pt participated at times during the group discussion. Attentive. Daily symptom tracker notes 05/15 for anxiety and irritability. Pt shared due to his anxiety and panic attacks he has not been able to drive far distances for quite a long time. One of his exposure goals was to drive further distances which he was able to accomplish over the weekend. Increased confidence as he works through exposure goals. He is utilizing thought challenging and reframing to help minimize his anxiety. Believes that increased awareness of cognitive distortions, coping skills, and benefits of exposure rather than avoidance have benefited him. Progress noted per pt report. Benefited from group support, encouragment, and feedback. Will continue in IOP to prevent decompensation, decrease panic attacks, and improve functioning. Narrative Note: []
--- NOTE | 2023-12-01 10:10 | BH.SGPN.GN ---
Behaviors/Verbalizations/Mental Status: [] Eye contact is fair to good. Motor activity is appropriate. Appearance is casual. Speech is Appropriate. Mood is dysthymic/anxious. Affect is congruent. Thoughts are linear and logical. No evidence of psychosis. Client Response/Progress/Benefit: [] Pt did well to participate in activity and was engaged and attentive during psychoeducation and interactive discussion on coping skills, why people use unhealthy coping skills, how to replace unhealthy coping skills, and internal vs external coping skills. Attentive as peers came up with list of negative coping skills including not asking for help, avoidance, isolating, sleeping, shopping, substance use, and several others. Pt reports often turning to substance use in the past and retail therapy which helps short-term but results in increased anxiety and depression long-term. Group discussed the effects of how negative coping skills can impact mental health in a negative way. Benefited from increased understanding of unhealthy coping skills and the need for developing healthy internal and external coping skills. Will continue in IOP to prevent decompensation, increase health coping skills, and improve functioning. Narrative Note: []
--- NOTE | 2023-12-01 11:10 | BH.SGPN.GN ---
Behaviors/Verbalizations/Mental Status: []Pt alert and oriented, neatly dressed and groomed. Eye contact good. Motor activity appropriate. Speech within normal limits. Affect congruent, mood anxious and euthymic. Thoughts linear, logical, no signs of hallucinations or delusions. Client Response/Progress/Benefit: [] Pt responded well to session, taking notes and contributing when prompted. Group discussed the different categories of coping skills which included distraction, emotional release, grounding, self-love, and thought challenging. Pt participated in creating a coping skills ?menu? from the five categories of coping skills. Pt's coping skill menu included: walking, venting to supports, earthing, positive self-talk, and looking at the evidence. Appeared to benefit from increasing repertoire of healthy coping skills. Will continue IOP to improve consistent skill application, challenge distortions, and further reduce avoidance caused by anxiety. Narrative Note: []
--- NOTE | 2023-12-02 14:54 | BH.MTP_ITS ---
Treatment Plan Review Demographics Date of Admission:: 11/10/23 Date of Treatment Plan Review:: 12/02/23 Admitting Diagnoses:: 1. Major depressive disorder, recurrent, moderate F33.1 2. Panic disorder F41.0 3. History of polysubstance abuse disorder in full remission for 11 years Current Diagnoses:: 1. Major depressive disorder, recurrent, moderate F33.1 2. Panic disorder F41.0 3. History of polysubstance abuse disorder in full remission for 11 years Patient Status Patient's Response to Treatment:: Patient has responded well to treatment as evidenced by consistent attendance, attentive during group sessions, and engagement in individual counseling. Patient overall does well with follow through on goals set in individual sessions. Status of Current Problems and Symptoms: Ongoing problems. Client's anxiety continuing to impact ability to independently function in certain areas like driving distances further than 15 or 20 minutes, difficulty being alone without his parents, and continued avoidance of activities that might raise his heart rate or cause dizziness. Client has started to work on exposure goals created from his fear letter from about 2 weeks ago. Client second to see some progress with ability to manage anxiety in a moment by slowly exposing himself to anxiety provoking situations. Client recently had success with being able to go to the store on his own with about a panic attack. Client also practiced exposure therapy and session last week by intentionally raising his heart rate by going on a walk and was able to manage the anxiety as well. Client noting slight decrease in depression since starting to see some decrease in his anxiety. Client is noting increased hopefulness about his future and prognosis since starting to work on exposure goals and noticing that his anxiety is not as bad as his thoughts made him to believe. Progress Problem #1: Problem Name:: Depression Status of Goals:: Objective 1-objective met, ongoing work encouraged. Client able to identify healthy coping skills like upset action, engaging in hobbies, and socialization. Client has noted on DSM-5 a 40% decrease in depression. Objective 2 -progress noted, ongoing work encouraged. Client is starting to increase awareness of how perspective and thought patterns can impact his mood and date. Client could benefit from continuing to work on the objective to increase ability to challenge thoughts independently. Team Recommendations:: Team recommends client continue goal and objectives to allow for continued practice and consistent utilization of healthy coping skills. Team recommends continued focus on working through the fear ladder, increasing use of calming skills in the moment, and challenging negative or anxiety provoking thought patterns. Problem #2: Problem Name:: Anxiety Status of Goals:: Objective 1-progress noted, ongoing work encouraged. Patient able to identify healthy coping skills like belly breathing, engaging senses, and additional grounding tools. Patient still in the beginning stages of practicing these skills and could benefit from continued work on this objective to show consistent use of calming skills in the moment. Patient does note a 70% reduction in anxiety at review per DSM-5 results. Objective 2 - progress noted ongoing work encouraged. Patient able identify anxiety triggers like driving to certain distances, being alone, and physiological symptoms like heart rate or dizziness. Patient still working on utilizing skills in the moment when starts to notice these triggers. Team Recommendations:: Team recommends client continue goal and objectives to allow for continued practice and consistent utilization of healthy coping skills. Team recommends continued focus on working through the fear ladder, increasing use of calming skills in the moment, and challenging negative or anxiety provoking thought patterns.
--- NOTE | 2023-12-03 09:07 | BH.SGPN.GN ---
Behaviors/Verbalizations/Mental Status: [] Eye contact fair to good. Motor activity appropriate. Speech within normal limits. Affect congruent, mood anxious and content. Thoughts linear, logical, no signs of hallucinations or delusions. Reviewed client?s symptom tracker, denies SI, plan, or intent as of 12/03/2023. Client Response/Progress/Benefit: [] Client receptive of session, attentive and willing to process with group. Reports improved sx of depression?(1/5) and anxiety (1/5) per daily sx tracker. ?Identified mental health ?win as successfully completing several of his exposure goals and is feeling more hopeful and less anxious as a result. Additional win noted as following through with going to the doctor to have a potential blood clot checked. Reports this is a win as he was able to prevent his anxiety from escalating to point of crisis, despite the medical stressor. Current stressor identified as being patient with progress and the treatment process. Insight that healing takes time and is applying positive self-talk to manage this. Shared that he plans to begin tracking his accomplishments to reflect back on his progress as well. Benefitted from encouragement and support of the group. Recommended continued IOP tx to further improve mood stability, promote consistent skill application, improve exposure consistency, as well as prevent decompensation. Narrative Note: []
--- NOTE | 2023-12-03 10:10 | BH.SGPN.GN ---
Behaviors/Verbalizations/Mental Status: [] Eye contact is good. Motor activity is appropriate. Appearance is casual. Speech is Appropriate. Mood is anxious and depressed. Affect is congruent. Thoughts are linear and logical. No evidence of psychosis Client Response/Progress/Benefit: [] Pt an active participant in group discussions. Participated during interactive discussion on defining conflict (internal/external) and possible benefits to conflict. Attentive during psychoeducation on conflict styles (Avoidant, Accommodating, Competing, Cooperative) and engaged during interactive discussion in which peers identified the benefits and consequences to each conflict style. Pt identified their primary conflict style as accommodating which can lead to blaming myself more in the long run. Benefited from increased awareness of the impact of conflict styles in mental health. Will continue in IOP tx to prevent decompensation, decrease panic, increase healthy coping, and improve functioning. Narrative Note: []
--- NOTE | 2023-12-03 11:10 | BH.SGPN.GN ---
Behaviors/Verbalizations/Mental Status: []Eye contact is good. Motor activity is appropriate. Appearance is neat. Speech is Appropriate. Mood is anxious, content. Affect is congruent. Thoughts are linear and logical. No evidence of psychosis. Client Response/Progress/Benefit: [] Pt was an active participant in group discussions and activity. Engaged with peers in activity and identifying healthy ways to approach each conflict scenario. Group discussed various conflict resolution skills that can be useful in addressing conflict outside of IOP. Benefited from practicing and learning conflict resolution skills during group activity. Able to identify areas pt wants to work on to improve how pt manages conflict both internally and externally. Expressed wanting to work on their stonewalling by ?recognizing why this isn?t healthy and will hurt me later.? Will continue in IOP to stabilize mood, further improve confidence with exposure goals, and reduce negative thinking patterns. Narrative Note: []
--- NOTE | 2023-12-03 14:16 | BH.MDN ---
Multi-Disciplinary Note Note 45-min Individual: Time Started:: 12:05 Date: 12/03/23 Purpose of session/treatment goals addressed:: Purpose of session was to address goals 1 and 2 from MTP. Eye Contact:: Fair Motor Activity:: Appropriate Appearance:: Neat Speech:: Appropriate Mood:: Euthymic Affect:: Congruent Thoughts:: Linear, Logical and No evidence of hallucinations/delusions noted Staff Interventions:: thought challenging, CBT techniques, mindfulness skills, strengths perspective and goal setting Client Response:: Client stated he is able to drive alone last week and further distance that he has thus far. Client reported overall he did well with managing his anxiety. Client stated however his parents were few cars behind him because they were traveling home from an event so he is unsure if he could have done it if his parents were not a few cars behind him. Client reported he has been working on his fear latter with daily small exposures. Client stated he has been to [employer] on his own and was able to get what he needed. 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 Client reported when he got inside post office anxiety started to spike and feel dizzy but he was able to get through the anxiety to complete his task. Client stated his dad who brings him to IOP has left the property the last 3 IOP sessions. Client stated he has been okay with this and his anxiety really has not spiked when his dad leaves. Therapist and client discussed the idea of client returning to NA meetings because it used to be a source of support for him and would provide him some continued group support once the IOP program is over. Client initially hesitant about the idea of returning to NA but recognizes he does not put himself out there he will stay at home with limited support. Client may go by next Thursday to attended at least 1 and a meeting which he plans to do on December 09. Risks/Concerns:: Denies suicidal ideation, plan, and intention. Progress Toward Goals/Plan:: Progress noted with client reporting continued progress on his fear ladder. Client able to sit with uncomfortable anxious symptoms while driving alone and going on a walk independently. Client agreeable to continue working steps on fear ladder. Added additional challenge to attend NA meeting next week. Client to continue IOP to continue taking small steps with his fear ladder, continue use of healthy calming skills like breathing and grounding, and prevent decompensation. Time Stopped:: 12:50
--- NOTE | 2023-12-08 09:05 | BH.SGPN.GN ---
Behaviors/Verbalizations/Mental Status: [] Eye contact is good. Motor activity is appropriate. Appearance is casual. Speech is Appropriate. Mood is anxious. Affect is congruent. Thoughts are linear and logical. No evidence of psychosis. Reviewed daily check in sheet and no reports of suicidal ideations or intent. Client Response/Progress/Benefit: [] Pt participated when prompted. Attentive. Daily symptom tracker notes 2/5 for agitation and 1/5 for anxiety. Pt continues to work on exposure goals and fear ladder. States I drive further than I ever have. Increased solo trips to complete tasks. He is encountering stressors during these solo trips and utilizing skills. Shared examples. Feels more hopeful about the future Why have I trapped myself in this cage for so long. He also shared a recent stressor in which he had to set boundaries and have a difficult conversation with support, which he fears he may lose. Progress noted per pt report. Benefited from group support, encouragement, and feedback. Will continue in IOP to prevent decompensation, increase healthy coping skills, decrease panic attacks, and improve functioning. Narrative Note: []
--- NOTE | 2023-12-08 10:10 | BH.SGPN.GN ---
Behaviors/Verbalizations/Mental Status: []Pt alert and oriented, casually dressed and groomed. Eye contact good. Motor activity appropriate. Speech within normal limits. Affect congruent, mood anxious and content. Thoughts linear, logical, no signs of hallucinations or delusions. Client Response/Progress/Benefit: []Pt was an active participant in group discussion and activity. Attentive during psychoeducation. Along with peers, pt was able to identify barriers to taking action in their life. Identified several symptoms and stressors that pt feels are holding them back from progress such as poor apathy, irresponsibility, and negative thinking. Stated these things have kept pt from working towards his goals or maintaining relationships. Pt shared that he wants to begin addressing apathy. Benefited from increased self-awareness of obstacles. Will continue IOP tx to prevent decompensation, improve thought challenging and acceptance, and promote mood stability. Narrative Note: []
--- NOTE | 2023-12-08 11:10 | BH.SGPN.GN ---
Behaviors/Verbalizations/Mental Status: []Pt alert and oriented, casually dressed and groomed. Eye contact fair. Motor activity appropriate. Speech within normal limits. Affect congruent, mood anxious. Thoughts linear, logical, no signs of hallucinations or delusions. Client Response/Progress/Benefit: [] Pt responded well to session, taking notes and participating in worksheet discussion. Pt connected with the discussion on motion vs action steps, and this helped pt learn how to set goals differently. Pt set a goal to decrease anxious avoidance. Pt identified motion steps including go to NA meeting, go for a long walk, and drive solo a little further. Pt also made action steps which included go to 1 NA meeting a week, walk on bike path 2 times a week, and driving to [place] or [employer] on his own. Appeared to benefit from identifying a small goal to benefit mental health. Client to continue IOP to work on fear ladder, increase use of calming skills, and prevent decompensation.
--- NOTE | 2023-12-09 11:55 | PCM.BH.PN ---
Progress Note Progress Note: The patient is a 38-year-old single, male with a history of panic attacks, depression, alcohol and polysubstance abuse disorder (sober from all x 11 years) who is seen in follow-up at the [facility] outpatient program. The patient is seen by telehealth today. I last saw the patient 1 month ago and at that time we lowered his propranolol dose. The patient feels that lowering the propranolol has made him much less tired now and able to get more done. He feels he is learning valuable skills in the IOP and has been particularly benefiting from doing the exposure therapy ladder. He has been able to drive himself places by himself and go in to these places and this is really encouraging to him. He is having less panic attacks also and has only had 4 panic attacks that were severe enough to take Ativan in the past month. He remains sober from all drug and alcohol use. According to the staff he is consistent and engaged in the program. He has not called 911 or visited the emergency room in the last month. His mood is also less depressed than before and he is hopeful for the future. He denies passive thoughts of , suicidal ideation, plan for suicide, homicidal ideation, hallucinations, delusions or symptoms of pavan ever. Current Psychiatric Medications: [] Prozac 40 mg p.o. daily; Lamictal 100 mg p.o. daily; lorazepam 0.5 mg, he takes 1/2 tablet only about once a week now; propranolol ER 60 mg p.o. once daily. Laboratory: The patient's 24-hour urine for metanephrine was negative so he does not have a pheochromocytoma. Mental Status Examination: [] The patient is an obese 38-year-old male who is casually dressed and groomed with good hygiene and appears normal for stated age. He has no psychomotor agitation or retardation. He is cooperative and pleasant during the interview. Speech is normal rate and rhythm and fluent with no pressure. Mood is mildly depressed and anxious only. Affect is full and normal. Thought process is goal-directed and organized. Thought content: The patient is hopeful that the exposure therapy is helping him to control over his anxiety. There is no evidence of passive thoughts of , plan for suicide, suicidal ideation, homicidal ideation, hallucinations or delusions. Reality testing is intact. Judgment is intact. Impulsivity is moderate. Insight is good. Diagnoses: [] 1. Major depressive disorder, recurrent, moderate 2. Panic disorder 3. History of polysubstance abuse disorder in full remission for 11 years 4. Obstructive sleep apnea on CPAP 5. Primary support and work issues Plan: [] The patient will continue the IOP and behavioral health at [facility] as the structure, support, education and group therapy will hopefully prevent worsening of the patient's symptoms which could require admission to the hospital. He felt safe during the interview and if it anytime he does not feel safe he agrees to let us know or go to the emergency room. No medication changes were made today. The patient will continue to follow-up with his outpatient providers and I will see the patient in follow-up while he is in the IOP.
== END 2023-12-09 23:59 ==
LOC: BHIOP 08:00
PROVIDERS: Referring Provider Psychiatry & Neurology Psychiatry; Visit Provider Psychiatry & Neurology Psychiatry
DX: F33.1 Major depressive disorder, recurrent, moderate (principal); F41.0 Panic disorder [episodic paroxysmal anxiety]; F19.11 Other psychoactive substance abuse, in remission; G47.33 Obstructive sleep apnea (adult) (pediatric); Z79.899 Other long term (current) drug therapy
CPT/HCPCS: S9480; 90832; 90834; 90837; 90853

== ENCOUNTER → 2023-11-11 | Outpatient (CLI) | payer MEDICARE, MEDICAID, SELFPAY ==
[2023-11-11 13:50] LABS: Thyroid Stim Hormone (TSH) 1.78 uIU/mL (0.358-3.74)
[2023-11-12 13:56] LABS: Vitamin D,25 Hydroxy 31.6 ng/mL
== END | disposition home or self-care (01) ==
LOC: LAB 12:25
PROVIDERS: Referring Provider Psychiatry & Neurology Psychiatry; Visit Provider Psychiatry & Neurology Psychiatry
DX: F41.0 Panic disorder [episodic paroxysmal anxiety] (principal)
CPT/HCPCS: 36415; 82306; 84443

== ENCOUNTER → 2023-11-17 | Outpatient (CLI) | payer MEDICARE, MEDICAID, SELFPAY ==
[2023-11-20 12:10] LABS: Metanephrine, Ur 145 ug/L (Undefined); Metanephrines, 24Ur 178 ug/24 hr (58-276); Normetanephrines, 24Ur 330 ug/24 hr (156-729); Normetanephrines, Ur 268 ug/L (Undefined)
== END | disposition home or self-care (01) ==
LOC: LAB 09:34
PROVIDERS: Referring Provider Psychiatry & Neurology Psychiatry; Visit Provider Psychiatry & Neurology Psychiatry
DX: F41.0 Panic disorder [episodic paroxysmal anxiety] (principal); E27.5 Adrenomedullary hyperfunction
CPT/HCPCS: 81050; 83835

== ENCOUNTER 2023-12-10 07:15 | Outpatient (RCR) | payer MEDICARE, MEDICAID, SELFPAY ==
[2023-12-10 00:50] VITALS: BP 137/88; PULSE 69
--- NOTE | 2023-12-10 09:02 | BH.SGPN.GN ---
Behaviors/Verbalizations/Mental Status: [] Client alert and oriented, casual appearance. Eye contact good. Motor activity appropriate. Speech within normal limits. Affect congruent, mood euthymic and positive. Thoughts linear, logical, no signs of hallucinations or delusions. Reviewed client's symptom tracker, no risk for suicidal ideation, plan, or intent. Client Response/Progress/Benefit: [] Client responded well to session AEB listening to others and sharing thoughts/feelings. Client reported mental health positive as driving further independently than he has in a year. 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 Client stated additional win as asking sponsee if he wants to go to a NA meeting with client. Client reported current stressor as feeling anxious about getting back into NA meetings. Client reported although he is anxious he knows it will be helpful to get back to connecting with others. Appeared to benefit from support from peers. Will continue IOP tx to promote use of anxiety management skills, continue working on fear ladder, and prevent decompensation.
--- NOTE | 2023-12-10 10:10 | BH.SGPN.GN ---
Behaviors/Verbalizations/Mental Status: [] Eye contact is good. Motor activity is appropriate. Appearance is casual. Speech is Appropriate. Mood is anxious. Affect is congruent. Thoughts are linear and logical. No evidence of psychosis. Client Response/Progress/Benefit: [] Pt was an engaged participant AEB listening attentively to others, taking notes, and providing feedback in small group discussions. Attentive during psychoeducation AEB by note taking and providing some input. Pt worked along with peers in small groups to define inappropriate guilt and appropriate guilt. Interactive discussion on examples of both inappropriate and appropriate guilt. Pt able to connect impact inappropriate guilt can have on MH. Benefited from increased awareness of guilt and the differences between appropriate and inappropriate guilt. Plan is to continue in IOP to prevent decompensation, decrease panic attacks, and improve functioning. Narrative Note: []
--- NOTE | 2023-12-10 11:15 | BH.SGPN.GN ---
Behaviors/Verbalizations/Mental Status: []Pt alert and oriented, casually dressed and groomed. Eye contact good. Motor activity appropriate. Speech within normal limits. Affect congruent, mood content, euthymic. Thoughts linear, logical, no signs of hallucinations or delusions. Client Response/Progress/Benefit: []Pt engaged participant AEB listening attentively to others and providing input throughout group. Pt worked within their small group to identify strategies to manage inappropriate guilt. Identified a personal example of inappropriate guilt as ?A friend saying he betrayed them by calling CPS when the friend was showing signs of psychosis? Insight cues a feeling of ?fear of disappointing them or being a 'bad friend'? Pt wants to work on combatting inappropriate guilt by reminding himself he did the right thing. Pt seemed to benefit from learning about strategies to manage appropriate and inappropriate guilt. Pt continue in IOP tx to prevent decompensation, maintain gains and promote continued mood stability. ? Narrative Note: []
--- NOTE | 2023-12-10 15:46 | BH.MDN_ITS ---
Multi-Disciplinary Note Note 45-min Individual: Time Started:: 12:05 Date: 12/10/23 Purpose of session/treatment goals addressed:: Purpose of session was to address goals 1 and 2 from MTP. Eye Contact:: Fair Motor Activity:: Appropriate Appearance:: Neat Speech:: Appropriate Mood:: Anxious Affect:: Congruent Thoughts:: Linear, Logical and No evidence of hallucinations/delusions noted Staff Interventions:: thought challenging, CBT techniques, mindfulness skills, strengths perspective, goal setting and taught coping skills Client Response:: Client reported overall things have been going pretty good. Client stated he drove for 15 minutes on his own which is something he has not done in over a year without having a panic attack. 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 Client reported during this discussion he thought about how it could be beneficial to invite this person to go back to a meeting with him. Client stated it has been almost 3 years ago since last time he went to an NA meeting. Client said he is feeling anxious about going to meeting [facility] but recognizes it is his home meeting and he will know a lot of the people units been several years since he has been there. Therapist provided psychoeducation about false comfort thoughts which provide some relief in the moment but does not really address the issue. Client connected with having false comfort thoughts which convinces him to not do something. Client agreed he needs to continue to work on setting with uncomfortable thoughts instead of trying to just make them go away with rationalization that typically does not wo rk long-term. Client stated in addition to working on exposure goals with driving and now going to him a NA meeting he will also work on extending his walk to expose himself to physical sensations. Risks/Concerns:: Denies suicidal ideation, plan, intention. Future oriented. Progress Toward Goals/Plan:: Progress note with client reporting ability to drive independently with the longest time in over a year. Client has been working consistently on daily exposure goals for his anxiety which client states has been helping him manage more independently. Client is going to attend his first NA meeting [facility] which is the first time in over 3 years. Client stated although he is anxious he feels ready to push himself. Plan is for client to continue IOP to continue working on exposure goals, challenge distortions, and prevent decompensation. Time Stopped:: 13:00
--- NOTE | 2023-12-15 09:00 | BH.SGPN.GN ---
Behaviors/Verbalizations/Mental Status: [] Eye contact good. Motor activity appropriate. Speech within normal limits. Affect congruent, mood content, fatigued. Thoughts linear, logical, no signs of hallucinations or delusions. Reviewed client?s symptom tracker, denies SI, plan, or intent as of 12/15/2023. Client Response/Progress/Benefit: [] Client receptive of session, attentive and willing to process with group. Reports improved sx of depression?(0/5) and anxiety (1/5) per daily sx tracker. ?Identified mental health ?win as successfully using opposite action, positive self-talk, and healthy grounding skills to follow-through with his exposure goal. Shared goal to drive independently and attend an NA meeting. Pt noted that NA used to be a major support in his life which was a motivating factor in completing the exposure goal. Shared that despite some anxiety, he overall was surprised by how calm he felt throughout. Expressed having thoughts that he was back to my old self and struggled however with feeling disappointed when later experiencing anxiety. Did well to challenge these thoughts and remind himself that his mental health is a journey and it is okay if it is something he may be working on for prolonged periods of time. Noted this helped with following through with an additional win which was to drive to and visit a friend he had not seen in person in 2 years. Did well to celebrate this accomplishment and give himself credit for doing so. Benefitted from encouragement and support of the group. Recommended continued IOP tx to further maintain mood stability, promote consistent skill application, well as prevent decompensation. Narrative Note: []
--- NOTE | 2023-12-15 10:10 | BH.SGPN.GN ---
Behaviors/Verbalizations/Mental Status: []Eye contact is good. Motor activity is appropriate. Appearance is neat. Speech is Appropriate. Mood is content. Affect is congruent. Thoughts are linear and logical. No evidence of psychosis. Client Response/Progress/Benefit: [] Attentive and engaged throughout the group discussions. Attentive during psychoeducation on the 4 communication styles (Passive, Passive-Aggressive, Aggressive, and Assertive) and the obstacles to effective communication. Attentive during interactive discussion on the benefits of communicating effectively, as well as the benefits and disadvantages to the different communication styles. Reports connecting most with the passive style and shared this leads him to feel apathetic, have low self-esteem, and eventually ?blow up.? Benefited from increased understanding of communication styles and how these can impact effective communication. Will continue in IOP to promote gains, further improve daily functioning, and reduce negative thinking patterns. Narrative Note: []
--- NOTE | 2023-12-15 11:10 | BH.SGPN.GN ---
Behaviors/Verbalizations/Mental Status: []Pt alert and oriented, casually dressed. Eye contact fair. Motor activity appropriate. Speech within normal limits. Affect congruent, mood euthymic. Thoughts linear, logical, no signs of hallucinations or delusions. Client Response/Progress/Benefit: [] Pt responded well to session AEB Pt listening attentively to others and providing input during group discussion on the pay offs and costs of the different communication styles. Pt able to connect how current communication style impacts mental health. Connected with peers? comments about importance of using assertive communication. Pt did well with practicing being assertive in the group activity and worked with group to identify potential skills for improving communication skills. Pt seemed to benefit from increasing awareness of healthy strategies to improve communication. Will continue IOP tx to continue working on fear ladder, challenge distortions, and prevent decompensation.
--- NOTE | 2023-12-17 09:05 | BH.SGPN.GN ---
Behaviors/Verbalizations/Mental Status: [] Pt alert and oriented, neatly dressed and groomed. Eye contact good. Motor activity appropriate. Speech within normal limits. Affect congruent, mood euthymic. Thoughts linear, logical, no signs of hallucinations or delusions. Reviewed pt?s symptom tracker, no risk for suicidal ideation, plan, or intent 12/17/23 Client Response/Progress/Benefit: []Pt responded well to session, attentive and engaged. Pt reports feeling skeptically hopeful this morning as pt shared he is doing much better, but he also gets worried that this will not last. Pt shared he is able to drive alone now, walk without getting anxious, and he has been more independent in general without panic attacks. Pt reported focusing on his fear ladder goals have helped him the most. Pt appeared to benefit from connecting with peers, reflecting on their progress, and gaining perspective. Pt will continue IOP tx to promote mood stability, combat distortions, and further improve functioning. Narrative Note: []
--- NOTE | 2023-12-17 10:10 | BH.SGPN.GN ---
Behaviors/Verbalizations/Mental Status: [] Eye contact is good. Motor activity is appropriate. Appearance is casual. Speech is Appropriate. Mood is euthymic. Affect is congruent. Thoughts are linear and logical. No evidence of psychosis. Client Response/Progress/Benefit: [] Pt engaged participant AEB listening to others, engaging in activity, and providing feedback at times. Attentive during psychoeducation and provided insight into obstacles that impede mental wellness. Pt shared with group current mental health reality and desired mental health reality. Stating he would like to have more patience and feel more confident in his ability to manage his anxiety. Identified barriers to desired reality include: apathy, fear of change, and lack of motivation. Benefited from taking look at current mental health state and obstacles for progress. Pt to continue IOP tx to improve mood stability, increase consistency in ERP goals, and prevent decompensation. Narrative Note: []
--- NOTE | 2023-12-17 11:10 | BH.SGPN.GN ---
Behaviors/Verbalizations/Mental Status: [] Eye contact is good. Motor activity is appropriate. Appearance is casual. Speech is Appropriate. Mood is euthymic. Affect is congruent. Thoughts are linear and logical. No evidence of psychosis. Client Response/Progress/Benefit: [] Pt was an engaged participant in group discussion and activity. Worked with group to identify strategies to help overcome barriers and obstacles to desired reality. Group developed strategies for the common barriers. Identified personal barriers to desired reality and choose one obstacle to work. Pt stated he wants to work on barrier of fear/uncertainty by continuing to try and to give himself for his progress, ?no matter how small?. Pt seemed to benefit from increased repertoire of healthy coping skills/strategies to overcome common barriers to moving forward. Pt is to continue IOP to challenge distortions and prevent decompensation. Narrative Note: []
--- NOTE | 2023-12-17 14:48 | BH.MDN_ITS ---
Multi-Disciplinary Note Note 45-min Individual: Time Started:: 12:10 Date: 12/17/23 Purpose of session/treatment goals addressed:: Purpose of session was to address goals 1 and 2 from MTP. Eye Contact:: Fair Motor Activity:: Appropriate Appearance:: Neat Speech:: Appropriate Mood:: Euthymic and Anxious Affect:: Congruent Thoughts:: Linear, Logical and No evidence of hallucinations/delusions noted Staff Interventions:: thought challenging, CBT techniques, mindfulness skills, strengths perspective, goal setting and taught coping skills Client Response:: Client reported last week as discussed he did end up going to the NA meeting. 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 Client stat ed he was anxious on the way to the meeting but once he got there his anxiety significantly decreased. Client stated he is really happy that he ended up going because it was enjoyable to reconnect with several people he used to see often. Client stated on Thursday he was able to go to [facility] and felt ability to manage his anxiety pretty well. Client said he started to track his anxiety level before doing something anxiety provoking during the situation and after. Client stated he realized a lot of the situations that he was feeling anxious about and that not being as anxiety provoking as he had expected. Client shared that in the last week he went out to lunch, until post office, was home alone for a little bit, drove solo, and went to [facility] to get his prescription. Client stated each of the situations were manageable and some he felt are getting easier and easier. Client shared earlier in this this week in group he did have to step out because he felt a weird physical sensation. Client stated he was able to return to group but recognizes he needs to continue to work on exposing himself to physical sensations because that does continue to make him anxious. Therapist encouraged client to attend another NA meeting tonight to keep up with that and make it easier easier for himself to go to have that network of support. Client stated he is not sure how go because he has a lot to do for his job once he leaves [facility] today. Client agreed he will continue to work on exposure goals every day and try to walk further on his own to help increase his heart rate and manage the anxiety. Risks/Concerns:: Denies suicide ideation, plan, and intention to date. Progress Toward Goals/Plan:: Progress note is client able to attend NA meeting for the first time in 3 years. Client stated he was anxious prior to the meeting but once he was there he felt his anxiety was barely noticeable. Client has been able to successfully get through numerous anxiety provoking events by continuing his daily exposure goals. Plan is for client to continue IOP to promote gains, continue with anxiety provoking exposure goals, and prevent decompensation. Time Stopped:: 13:00
--- NOTE | 2023-12-24 09:05 | BH.SGPN.GN ---
Behaviors/Verbalizations/Mental Status: [] Client alert and oriented, casually dressed and groomed. Eye contact good. Motor activity appropriate. Speech within normal limits. Affect congruent, mood euthymic. Thoughts linear, logical, no signs of hallucinations or delusions. Reviewed client?s symptom tracker, no risk for suicidal ideation, plan, or intent as of 12/24/23. Client Response/Progress/Benefit: [] Client responded well to session, offering ideas to peers and providing encouragement. Client reports feeling chill this morning. Client reflected on his progress with utilizing the exposure ladder for his panic attacks. Client discussed how he went to a family reunion yesterday which he felt was something he could not of done weeks ago. Client also shared being able to drive by himself and increasing the comfort with doing so. 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 Client appeared to benefit from reflecting on his growth. Client will continue IOP tx as Client continues to struggle with avoidance, negative self-talk, and panic attacks. Narrative Note: []
--- NOTE | 2023-12-24 10:10 | BH.SGPN.GN ---
Behaviors/Verbalizations/Mental Status: []Pt alert and oriented, neatly dressed and groomed. Eye contact good. Motor activity appropriate. Speech within normal limits. Affect congruent, mood euthymic. Thoughts linear, logical, no signs of hallucinations or delusions. Client Response/Progress/Benefit: []Pt was an active participant in group discussion. Attentive during psychoeducation on the CBT [place] (Thoughts, Behaviors, Emotions). Engaged in group discussion on how thoughts and behaviors can contribute to maintaining adverse feelings, such as depression, anxiety, and irritability. Completed worksheet in which pt identified a thought that is keeping them stuck or is in obstacle to increased mental wellness. The thoughts that pt identified were ?I don?t feel right, I?m going to , this is never going away, and here we go again.? Shared this maintains depression and anxiety cycles. Pt benefited from increased awareness of the basis of CBT therapy as well as specific thoughts that are impacting pt's progress. Will continue in IOP to promote mood stability, increase distress tolerance, and reinforce healthy coping skills. Narrative Note: []
--- NOTE | 2023-12-24 11:10 | BH.SGPN.GN ---
Behaviors/Verbalizations/Mental Status: []Pt alert and oriented, neatly dressed and groomed. Eye contact good. Motor activity appropriate. Speech within normal limits. Affect congruent, mood euthymic. Thoughts linear, logical, no signs of hallucinations or delusions. Client Response/Progress/Benefit: [] Pt responded well to session, contributing to discussion and attentive throughout discussion. Pt identified a negative thought that has kept them stuck. Pt's thought was I?m not going to get better.? Pt reported when they think this way, pt continues to avoid and feel hopeless Pt worked to reframe the thought by finding more rational, realistic ways to look at the thoughts and then processed them within group setting. Pt reframed the thought to ?I have already gotten better, look at the progress I have already made.? Pt appeared to benefit from practicing challenging negative thinking with peers and gaining coping skills. Pt will continue IOP tx to promote mood stability, increase distress tolerance, and further increase self-confidence. Narrative Note: []
--- NOTE | 2023-12-24 14:19 | BH.MDN_ITS ---
Multi-Disciplinary Note Note 45-min Individual: Time Started:: 12:00 Date: 12/24/23 Purpose of session/treatment goals addressed:: to address goals 1 and 2 from MTP. Eye Contact:: Good Motor Activity:: Appropriate Appearance:: Neat Speech:: Appropriate Mood:: Euthymic Affect:: Congruent Thoughts:: Linear Staff Interventions:: thought challenging, motivational interviewing, strengths perspective and goal setting Client Response:: Client stated he is continuing to be able to drive alone and today walked around the building by himself with minimal to no anxiety. Client reported he has been working on his fear latter with daily small exposu res and progress each week. Client discussed some hesitation with bigger items on his fear ladder in fear of decompensation, but was confident in taking the next steps with wanting to try to stay at his house instead of his parents. Discussed ways he can utilize items and supports as a form of security with still making progress towards exposure. Client did not go to last week as planned, however, discussed attending family reunion that elicited that same feelings of anxiety he had to work though. Client indicated that he managed his anxiety well and even enjoyed himself with anticipation of event being more anxiety provoking than the event itself. Client discussed plans to go to next week and then on a weekly basis, but reported struggle due to there only being two meetings in his area to go to. This therapist asked scaling question on how likely from 1-10 he feels he will be able to successfully take next step on his fear ladder, client said he was very confident with identifying a 10. Risks/Concerns:: Denies suicidal ideation, plan, and intention. Progress Toward Goals/Plan:: Progress noted with client reporting continued progress on his fear ladder. Client able to attend family reunion and drive alone with managing uncomfortable anxious symptoms. Client discussed how his anxiety of the lower fear steps on ladder is minimizing. Client reported no need to take Ativan in response to an anxiety attack in over a month. Client agreeable to continue working steps on fear ladder. Client to continue IOP to continue taking small steps with his fear ladder, continue use of healthy calming skills like breathing and grounding, and prevent decompensation Time Stopped:: 12:40
--- NOTE | 2023-12-29 09:05 | BH.SGPN.GN ---
Behaviors/Verbalizations/Mental Status: [] Eye contact is good. Motor activity is appropriate. Appearance is casual. Speech is Appropriate. Mood is anxious. Affect is congruent. Thoughts are linear and logical. No evidence of psychosis. Reviewed daily check in sheet and no reports of suicidal ideations or intent. Client Response/Progress/Benefit: [] Pt participated when prompted. Attentive. He reports that he had significant anxiety a couple days since last week. Shared decompensation and thoughts like ? you haven?t made progress at all?. He was able to work through this anxiety and panic which ultimately increased his confidence. ? I rode out the discomfort?. After anxiety he continues to utilize skills and managed to keep going with his exposure goals as he drove ?solo? and set boundaries. Progress noted. Benefited from group support, encouragement, and feedback. Will continue in IOP to prevent decompensation, decrease panic attacks, and improve functioning. Narrative Note: []
--- NOTE | 2023-12-29 10:10 | BH.SGPN.GN ---
Behaviors/Verbalizations/Mental Status: [] Eye contact is good. Motor activity is appropriate. Appearance is casual. Speech is Appropriate. Mood is anxious and content. Affect is congruent. Thoughts are linear and logical. No evidence of psychosis. Client Response/Progress/Benefit: [] Client receptive to session AEB listening attentively to others and taking notes. Pt attentive and contributing throughout psychoeducation on the cognitive triangle and maintenance cycles. Pt engaged during group discussion reviewing the impact of daily activities and behaviors in either reinforcing unhealthy maintenance cycles and depression or assisting in reducing symptoms (?down? vs ?up? activities). Client identified personal ?down? activities they engage in as: isolating, doom scrolling, complaining, and messy environment. Attentive during discussion on Common ?Up? activities client identified theirs to include: restorationism, hobbies, exercise, time with friends. Appeared to benefit from increased awareness of current behaviors and impact these have on mental health. Will continue IOP to stabilize mood, improve functioning, prevent decompensation. Narrative Note: []
--- NOTE | 2023-12-29 11:10 | BH.SGPN.GN ---
Behaviors/Verbalizations/Mental Status: []Eye contact is good. Motor activity is appropriate. Appearance is neat. Speech is Appropriate. Mood is euthymic. Affect is full. Thoughts are linear and logical. No evidence of psychosis. Client Response/Progress/Benefit: []Pt responded well to session, attentive and engaged in group discussions and activity. Group discussed values and the benefits that knowing one's values can have on one's mental health. Pt explored own values and identified personal top values. Pt stated a personally important value is physical health. Pt set a goal to do stretching at home each day and eat less during meals. Pt also reported benefitting from the activity and the group encouragement today. Will continue in IOP to promote mood stability and reinforce healthy coping skills. Narrative Note: []
--- NOTE | 2023-12-31 09:05 | BH.SGPN.GN ---
Behaviors/Verbalizations/Mental Status: [] Eye contact is good. Motor activity is appropriate. Appearance is casual. Speech is Appropriate. Mood is anxious. Affect is congruent. Thoughts are linear and logical. No evidence of psychosis. Reviewed daily check in sheet and no reports of suicidal ideations or intent. Client Response/Progress/Benefit: [] Pt was an active participant in group discussions. Shared with the group that today is his last day in [facility] as he is set to graduate successfully. Feeling encouraged and hopeful. He shared his mental health struggles prior to [facility] and his progress over the course of treatment. Mentioned that he has not called 911 due to his panic, is more comfortable being alone with his thoughts, has decreased his panic/anxiety, and his overall quality of life has improved. Reviewed his aftercare plans. He is going to return to support and is linked with a therapist. Believes that exposure goals and working through fear ladder were most beneficial for him. Benefited from group support, encouragement, and feedback. Will be discharge from [facility] today. Narrative Note: []
--- NOTE | 2023-12-31 10:15 | BH.SGPN.GN ---
Behaviors/Verbalizations/Mental Status: []Client alert and oriented, neatly dressed and groomed. Eye contact good. Motor activity appropriate. Speech within normal limits. Affect congruent, mood content. Thoughts linear, logical, no signs of hallucinations or delusions. Client Response/Progress/Benefit: []Pt engaged in session AEB listening attentively to others and providing input throughout. Pt engaged in activity, able to connect how it can be uncomfortable and difficult to accept when things are out of one?s own control. Pt worked with group to identify what things in life can be hard to accept. Group identified things hard to accept as: change, loss, mental health diagnosis, other?s behaviors, and failure. Pt identified struggling to accept that he has a limp because of a foot issue and that he needs to go to a doctor to address the problem. Seemed to benefit from increased awareness of the importance of acceptance. Pt to continue in IOP tx to continue working on exposing self to anxious provoking situations, practice healthy calming skills, and prevent decompensation.
--- NOTE | 2023-12-31 11:15 | BH.SGPN.GN ---
Behaviors/Verbalizations/Mental Status: []Pt alert and oriented, casually dressed and groomed. Eye contact good. Motor activity appropriate. Speech within normal limits. Affect congruent, mood content. Thoughts linear, logical, no signs of hallucinations or delusions. Client Response/Progress/Benefit: [] Pt responded well to session AEB taking notes and contributing to discussion throughout. Pt engaged as group continued discussion on acceptance and the mental health benefits of practicing acceptance. Pt and peers identified what makes acceptance challenging and pt completed a self-reflection exercise on what is hard to accept in pt's life. Pt identified what is hard to accept in their life that they would like to work on is a change in physical functioning due to unexpected new health issues. Group identified strategies to increase acceptance and pt wants to schedule a doctor?s appointment to gather additional information in order to increase acceptance. Pt appeared to benefit from gaining insight and learning strategies to increase acceptance. Pt will d/c from IOP tx given progress and continue with outpatient counseling to prevent decompensation and maintain mood stability. Narrative Note: []
--- NOTE | 2023-12-31 14:50 | BH.MDN ---
Multi-Disciplinary Note Note 45-min Individual: Time Started:: 12:10 Date: 12/31/23 Purpose of session/treatment goals addressed:: Purpose of session was to review treatment progress, complete maintenance plan, and solidify aftercare plans. Eye Contact:: Good Motor Activity:: Appropriate Appearance:: Neat Speech:: Appropriate Mood:: Euthymic Affect:: Full Thoughts:: Linear, Logical and No evidence of hallucinations/delusions noted Staff Interventions:: discharge planning, strengths perspective, reviewed DSM-5 and other (completed maintenance plan) Client Response:: Client reported feeling excited that he is graduating from [facility] today because he has seen so much progress in himself. Client stated he has made so much gains with being able to manage his anxiety better. Client stated prior to [facility] he couldn't be alone, wasn't able to drive on his own beyond in his town, and was mostly stuck in his parents house. Client reported since being in [facility] he has learned skills to help him manage anxiety so that he can now drive independently for over 15 minutes. Client has been able to be alone at his parents house. Client also able to return to a NA home group that he hasn't been to in over 2 years. Client stated his depression has improved because he feels able to live again. Client reported he knows he still has continued work to do so he can get back to his baseline. Client worked with therapist to complete maintenance plan in which he identified potential triggers, warning signs, self-care activities, and healthy coping skills. Risks/Concerns:: Denies suicidal ideation, plan, or intention to date. Progress Toward Goals/Plan:: Per DSM 5 cross cutting measure at discharge client's depression decreased by 60%, anxiety decreased by 70%, and an overall decrease in mental health symptoms by 57%. Client reports improved daily functioning, ability to be alone more often, able to drive independently further than he has in years, and returned to group after not going for 2 years. Client plans to continue seeing outpatient therapist at his [facility]. Client is established with Adeline Garibay for psychiatry. Plan is for client to discharge from [facility] today. Time Stopped:: 13:05
--- NOTE | 2023-12-31 17:14 | BH.DS_ITS ---
Discharge Summary Demographics Date of Admission:: 11/10/23 Discharge Date: 12/31/23 Presenting Problems at Admission:: The patient is a 38-year-old single, male with a history of panic attacks, depression, alcohol and polysubstance abuse disorder (sober from all for 11 years) who is who was referred by his outpatient psychiatric provider to the [facility] for worsening symptoms of anxiety, panic attacks and depression. The patient owns his own house and used to live there but has lived with his parents now for the past 2 years due to his worsening panic attacks. The patient had his first panic attack 5 years ago in 2019 which was triggered by exercising. He continued to have panic attacks and they gradually worsened so that in the past 2 years they have become quite severe and he is unable to drive or be alone. One of his parents is almost always with him and his panic attacks also are triggered by physical exertion so he is unable to exercise anymore and unable to like mow the lawn or other activity. He has been on disability since age 23 for polysubstance abuse and psych issues. He is having panic attacks throughout the day sometimes while sleeping and the symptoms include increased heart rate, increased blood pressure which last during the panic attack, sweating, feeling of impending doom, increased heart rate, and other. He is a worrier by nature and ruminates negatively. He has been isolating and avoids stressors. He is hypersensitive to light and sound. He has called 911 several times a month for severe panic attacks. He has 30 emergency room visits for anxiety in the past year. He endorses hopelessness off-and-on, sadness, but denies worthlessness or guilt. He does not enjoy anything like he used to because he said he is unable to be active because it triggers a panic attack. Discharge Diagnoses:: 1. Major depressive disorder, recurrent, moderate F33.1 2. Panic disorder F41.0 3. History of polysubstance abuse disorder in full remission for 11 years Reason for Discharge:: Pt has made significant treatment progress on his goals and no longer meets criteria for [facility] level of care. Treatment Progress During Treatment & Response: Per DSM 5 cross cutting measure at discharge client's depression decreased by 60%, anxiety decreased by 70%, and an overall decrease in mental health symptoms by 57%. Client reports improved daily functioning, ability to be alone more often, able to drive independently further than he has in years, and returned to NA group after not going for 2 years. Client has been able to manage his anxiety symptoms more effectively with decrease in panic attacks.Client responded well to treatment as evidenced by consistent attendance, engagement in group sessions, and follow through on goals/strategies discussed in individual therapy. Issues Still to be Addressed:: Client could benefit from continuing to work on his fear ladder for driving further distances on his own. Client also could benefit from intentionally doing physical activities that will raise his heart rate and make him feel dizzy to work on decreasing anxiety about physical sensations. Client also expressed desire to continue working on working on being alone and spending some time back at his house without support there. Discharge Recommendations/Instructions:: Client plans [facility]. Client is established with Adeline Garibay for psychiatry. Discharge Handout
== END 2023-12-31 13:35 | disposition home or self-care (01) ==
LOC: BHIOP 07:15
PROVIDERS: Referring Provider Psychiatry & Neurology Psychiatry; Visit Provider Psychiatry & Neurology Psychiatry
DX: F33.1 Major depressive disorder, recurrent, moderate (principal); F41.0 Panic disorder [episodic paroxysmal anxiety]; F19.11 Other psychoactive substance abuse, in remission
CPT/HCPCS: S9480; 90834; 90853